=== PATIENT | male | born 1940 | race Caucasian/White ===

== ENCOUNTER 2018-02-10 20:14 | Emergency (ER) | payer OTHER, BC ==
--- NOTE | 2018-02-10 20:56 | PDOC ---
History of Present Illness - General Stated Complaint: SOB Time Seen by Provider: 02/10/18 20:20 History Source: EMS Exam Limitations: Intubated - History of Present Illness Initial Comments: 02/10/18 20:51 77 year old male with PMH HLD, ETOH abuse BIBA intubated from bar. Pt was found down by his friend. EMS stated on presentation he was non-responsive, left sided facial drooping, no protecting his airway, appeared cyanotic, and they intubated him. Pt was given 20 etomidate and 50 rocuronium and 10 mg Versed. Per pt's nephew, pt is an every day drinker, usually 2 beers and 8 vodka drinks , at least 10 years of abuse. Pt's recently and pt's nephew states he has been drinking more since then. Nephew - Ulices Villa - [phone] Past History - Past Medical History Allergies/Adverse Reactions: Allergies Allergy/AdvReac Type Severity Reaction Status Date / Time No Allergy Information Allergy Verified 02/10/18 22:33 Available Home Medications: Ambulatory Orders Unobtainable 02/10/18 Review of Systems - Review of Systems Able to Perform ROS?: No (Pt is intubated) *Physical Exam - Physical Exam Comments: 02/10/18 20:52 Constitutional: Well-nourished, Well-developed, appearing stated age. HEENT: head is normocephalic. pupils pinpoint, but equal, minimally responsive to light. pt is intubated. drooling from mouth. Heart: regular rhythm. no murmurs, rubs or gallops. Lungs: clear to auscultation bilaterally. no crackles, rhonchi or wheezing. no stridor. Abdomen: soft, nontender. distended. normal bowel sounds. Extremities: Peripheral pulses intact. No lower extremity edema. Neurological: CN 2-12 grossly intact. Moves all four extremities. Psych: intubated and sedated. Heart Score/ECG Review - ECG Impressions Comment:: 02/10/18 22:50 EKG performed at 2234 - rate 92, regular rhythm, normal axis, normal intervals, no acute ST changes. ED Treatment Course - LABORATORY CBC & Chemistry Diagram: 02/10/18 20:33 02/10/18 20:33 - ADDITIONAL ORDERS Additional order review: Laboratory Results 02/10/18 20:17 POC Glucometer 135.77347 02/10/18 20:17 POC Glucometer 135.38835 Medical Decision Making - Medical Decision Making 02/10/18 20:54 77 year old male with PMH HLD BIBA from bar to ED after being found down. Was intubated by EMS. EMS reported BP of 200/100. BP on presentation at 2021 - 176/110. - BP control held at this time POC glucose 135. Stat CT performed. Pt was producing saliva and drooling, suctioning used. 02/10/18 21:11 Pt is moving his hands and biting on the intubation tube. - 4mg Versed ordered RN reports repeat BP 190/110 - Labetolol 10 mg ordered 02/10/18 21:25 CT head - acute subdural hematoma. I spoke with Dr. Carbone, neurovascular surgeon, about the case, he advises the pt to be transferred. I spoke with the endovascular surgeon at [facility], Dr. Ernandez, who accepts the transfer. Repeat BP 135/90 Repeat HR 89 02/10/18 22:23 Pt is awake, moving all four extremities. - Versed 4 mg ordered - Versed drip ordered 02/10/18 22:28 CBC WBC 15.5 K/mm3 (4.0-10.0) H 02/10/18 20:33 RBC 4.10 M/mm3 (4.00-5.60) 02/10/18 20:33 Hgb 13.6 GM/dL (11.7-16.9) 02/10/18 20:33 Hct 41.2 % (35.4-49) 02/10/18 20:33 MCV 100.6 fl (80-96) H 02/10/18 20:33 MCH 33.2 pg (25.7-33.7) 02/10/18 20:33 MCHC 33.0 g/dl (32.0-35.9) 02/10/18 20:33 RDW 13.2 % (11.9-15.9) 02/10/18 20:33 Plt Count 135 K/MM3 (134-434) 02/10/18 20:33 MPV 9.0 fl (7.5-11.1) 02/10/18 20:33 Absolute Neuts (auto) 10.9 K/mm3 (1.5-8.0) H 02/10/18 20:33 Neutrophils % 70.4 % (42.8-82.8) 02/10/18 20:33 Lymphocytes % 20.5 % (8-40) 02/10/18 20:33 Monocytes % 8.0 % (3.8-10.2) 02/10/18 20:33 Eosinophils % 0.6 % (0-4.5) 02/10/18 20:33 Basophils % 0.5 % (0-2.0) 02/10/18 20:33 Nucleated RBC % 0 % (0-0) 02/10/18 20:33 Leukocytosis with a left shift. No anemia. Increased MCV - Hx ETOH abuse CMP Sodium 128 mmol/L (136-145) L 02/10/18 20:33 Potassium 3.6 mmol/L (3.5-5.1) 02/10/18 20:33 Chloride 94 mmol/L (98-107) L 02/10/18 20:33 Carbon Dioxide 21 mmol/L (21-32) 02/10/18 20:33 Anion Gap 13 MMOL/L (8-16) 02/10/18 20:33 BUN 7 mg/dL (7-18) 02/10/18 20:33 Creatinine 0.6 mg/dL (0.55-1.3) 02/10/18 20:33 Creat Clearance w eGFR > 60 (>60) 02/10/18 20:33 POC Glucometer 135.20244 UNITS (80-120) 02/10/18 20:17 Random Glucose 84 mg/dL (74-106) 02/10/18 20:33 Lactic Acid 7.4 mmol/L (0.4-2.0) H* 02/10/18 20:33 Calcium 7.9 mg/dL (8.5-10.1) L 02/10/18 20:33 Phosphorus 3.2 mg/dL (2.5-4.9) 02/10/18 20:33 Magnesium 1.4 mg/dL (1.8-2.4) L 02/10/18 20:33 Total Bilirubin 0.7 mg/dL (0.2-1) 02/10/18 20:33 AST 412 U/L (15-37) H 02/10/18 20:33 ALT 137 U/L (13-61) H 02/10/18 20:33 Alkaline Phosphatase 82 U/L (45-117) 02/10/18 20:33 Creatine Kinase 118 IU/L (26-308) 02/10/18 20:33 Troponin I < 0.02 ng/ml (0.00-0.05) 02/10/18 20:33 Total Protein 7.4 g/dl (6.4-8.2) 02/10/18 20:33 Albumin 3.5 g/dl (3.4-5.0) 02/10/18 20:33 Hyponatremia, normal glucose - NS at 717 cc/hour ordered. Hypochloremia. Lactic acidosis. - IVF ordered Hypocalcemia, 8.3 corrected for albumin - 1 g Ca gluconate ordered Hypomagnesium. - 2 g Mg ordered Transaminitis - Hx ETOH abuse 02/10/18 22:58 Urine Test Results Urine Color Ltyellow 02/10/18 21:43 Urine Appearance Slcloudy 02/10/18 21:43 Urine pH 5.0 (5.0-8.0) 02/10/18 21:43 Ur Specific [place] 1.008 (1.010-1.035) L 02/10/18 21:43 Urine Protein 1+ (NEGATIVE) H 02/10/18 21:43 Urine Glucose (UA) Negative (NEGATIVE) 02/10/18 21:43 Urine Ketones Trace (NEGATIVE) H 02/10/18 21:43 Urine Blood 1+ (NEGATIVE) H 02/10/18 21:43 Urine Nitrite Negative (NEGATIVE) 02/10/18 21:43 Urine Bilirubin Negative (<2.0 mg/dL) 02/10/18 21:43 Ur Leukocyte Esterase Negative (NEGATIVE) 02/10/18 21:43 Urine Bacteria Rare /hpf (NONE SEEN) 02/10/18 21:43 UDS positive for benzos - Possibly explains increasing Versed required to sedate ETOH level = 128.7 02/10/18 23:06 - Copies of labwork was given to EMS - Copy of CT report was given to EMS - Copy of pt's nephew's information was provided to EMS Pt will be transferred to [facility]. *DC/Admit/Observation/Transfer Diagnosis at time of Disposition: Subdural hematoma - Discharge Dispostion Disposition: TRANSFER ACUTE CARE/OTHER HOSP Condition at time of disposition: Guarded Decision to Admit order: No - Referrals - Patient Instructions - Post Discharge Activity
--- NOTE | 2018-02-10 21:08 | PDOC ---
Attending Attestation - HPI HPI: 02/10/18 21:11 The patient is a 77 male who presents to the ED via EMS s/p LOC earlier today. As per EMS, patient was found LOC in a Bar. EMS states the patient was altered and unable to move. EMS states the patient smelled of alcohol when found. Patient had a BP on 200/100 en route, is hypertensive, was given 5 versed, and was intubated. HPI is limited secondary to patients clinical condition. <David Cook - Last Filed: 02/10/18 21:11> - Resident Resident Name: Katheryn Mendiola - ED Attending Attestation I have performed the following: I have examined & evaluated the patient, The case was reviewed & discussed with the resident, I agree w/resident's findings & plan, Exceptions are as noted - Physicial Exam PE: 02/10/18 21:05 intubated, unresponsive. course breath sounds bilaterally. heart rrr no mrg. abd distended, nontender. ext cool, 2 + dp / pt pulses. pupils 2 mm bilaterally. nuero, intubated, sedated paralyzed. - Medical Decision Making 02/10/18 21:06 77 yo male collapsed. at bar. here with ams. per ems, pt was at bar, drinking found unresponsive on floor. intubated in field. felt to have had a left facial droop however not moving any extremities. on exam pt intubated, sedated, not following commands. pupils equally round and reactive. differential ich, traumatic, vs. atraumatic. cva, tox, intox etoh, other substance. aaa, . plan cxr ventilation ct head., cxr labs tox scrren. 02/10/18 21:29 pt with subdural, likley traumatic. right sided. after sedation pt moving both bilat upper ext. given 4 mg versed. d/w [facility], who accepted pt as transfer. 02/10/18 21:38 pt will be transferred to [place], accepted by [facility]. 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 states he has been drinking daily lately has had frequent falls. <Karina Bailey - Last Filed: 02/10/18 22:39> Heart Score/ECG Review #1 General ECG Interpretation: Sinus Rhythm, Normal Rate, Normal Intervals, No acute ischemic changes <Karina Bailey - Last Filed: 02/10/18 22:39> Attestations - Attestations 02/10/18 21:11 Documentation prepared by David Cook, acting as medical observer for Karina Bailey MD <David Cook - Last Filed: 02/10/18 21:11>
[2018-02-10] MEDS ORDERED: MIDAZOLAM HCL 2 MG/2 ML SINGLE DOSE VIAL IVPUSH ONE ×2 (21:11→22:19)
[2018-02-10] MEDS ORDERED: LABETALOL HCL 5 MG/1 ML (100MG/20 ML VIAL) IVPUSH ONE (21:11)
[2018-02-10 21:19] LABS: BASO % 0.5 % (0-2.0); EOS % 0.6 % (0-4.5); HEMATOCRIT 41.2 % (35.4-49); HEMOGLOBIN 13.6 GM/dL (11.7-16.9); LYMPH % 20.5 % (8-40); MCH 33.2 pg (25.7-33.7); MEAN CELL VOLUME 100.6 fl (80-96); NEUT % 70.4 % (42.8-82.8); PLATELET COUNT 135 K/MM3 (134-434); RDW 13.2 % (11.9-15.9); WHITE BLOOD COUNT 15.5 K/mm3 (4.0-10.0)
[2018-02-10 21:33] LABS: VENOUS PC02 55.9 mmHg (38-52); VENOUS PO2 36.1 mmHg (28-48)
[2018-02-10 21:35] LABS: VENOUS PH 7.2 (7.32-7.42)
[2018-02-10 21:39] LABS: INR 0.94 (0.83-1.09); PROTHROMBIN TIME (PATIENT) 11.1 SEC (9.7-13.0)
[2018-02-10] MEDS ORDERED: SODIUM CHLORIDE 0.9% 1000 ML INFUS.BAG IV ONE (21:39)
[2018-02-10 21:42] LABS: ACTIVATED PTT 27.8 SECONDS (25.2-36.5)
[2018-02-10 22:01] LABS: URINE APPEARANCE SLCLOUDY; URINE BILIRUBIN NEGATIVE (<2.0 mg/dL); URINE COLOR LTYELLOW; URINE GLUCOSE (UA) NEGATIVE (NEGATIVE); URINE KETONE TRACE (NEGATIVE); URINE LEUK ESTERASE NEGATIVE (NEGATIVE); URINE NITRITE NEGATIVE (NEGATIVE); URINE PROTEIN 1+ (NEGATIVE); URINE UROBILINOGEN NEGATIVE mg/dL (0.2-1.0)
[2018-02-10] MEDS ORDERED: levETIRAcetam 500 MG/5 ML INJECTION VIAL IVPB ONE (22:07)
[2018-02-10 22:11] LABS: URINE BACTERIA RARE /hpf (NONE SEEN)
[2018-02-10 22:17] VITALS: TEMP 98.7; BMI 28.1
[2018-02-10 22:24] LABS: ALBUMIN 3.5 g/dl (3.4-5.0); ALK PHOS 82 U/L (45-117); ANION GAP 13 MMOL/L (8-16); BILIRUBIN,TOTAL 0.7 mg/dL (0.2-1); BLOOD UREA NITROGEN 7 mg/dL (7-18); CALCIUM 7.9 mg/dL (8.5-10.1); CHLORIDE 94 mmol/L (98-107); CO2 21 mmol/L (21-32); CREATININE 0.6 mg/dL (0.55-1.3); GLUCOSE,RANDOM 84 mg/dL (74-106); MAGNESIUM 1.4 mg/dL (1.8-2.4); PHOSPHOROUS 3.2 mg/dL (2.5-4.9); POTASSIUM 3.6 mmol/L (3.5-5.1); SGOT/AST 412 U/L (15-37); SGPT/ALT 137 U/L (13-61); SODIUM 128 mmol/L (136-145); TOT PROT 7.4 g/dl (6.4-8.2)
[2018-02-10] MEDS ORDERED: SODIUM CHLORIDE 1,000 ML IV SCH (22:45)
[2018-02-10 22:49] LABS: COCAINE, UR NEGATIVE ng/ml (CUTOFF=300); METHADONE, UR NEGATIVE ng/ml (CUTOFF=300); OPIATES, URI NEGATIVE ng/ml (CUTOFF=300); PHENCYCLIDINE,URINE NEGATIVE ng/ml (CUTOFF=25); URINE AMPHETAMINES NEGATIVE ng/ml (CUTOFF=500); URINE BARBITURATES NEGATIVE ng/ml (CUTOFF=200)
[2018-02-10] MEDS ORDERED: MAGNESIUM SULF 50% (8.12 MEQ/2 ML-1 GM VIAL) IVPB ONE (22:50)
[2018-02-10] MEDS ORDERED: CALCIUM GLUCONATE 10% - 1,000 MG/10 ML VIAL IVPB ONE (22:51)
[2018-02-10 22:56] LABS: URINE BENZODIAZEPINES POSITIVE ng/ml (CUTOFF=200)
[2018-02-10] MEDS ORDERED: CALCIUM GLUCONATE 10% - 1,000 MG/10 ML VIAL ONE (22:57)
[2018-02-10] MEDS ORDERED: MAGNESIUM 1GM/D5W - 2 GM/200 ML IVPB IVPB ONE (22:57)
[2018-02-10] MEDS ORDERED: MIDAZOLAM 100 MG in SODIUM CHLORIDE 100 ML IVPB SCH (23:00)
[2018-02-10 23:30] VITALS: BP 137/81; PULSE 96
--- NOTE | 2018-02-12 18:06 | EKG ---
Test Reason : Blood Pressure : / mmHG Vent. Rate : 092 BPM Atrial Rate : 092 BPM P-R Int : 174 ms QRS Dur : 086 ms QT Int : 398 ms P-R-T Axes : 049 076 078 degrees QTc Int : 492 ms NORMAL SINUS RHYTHM PROLONGED QT ABNORMAL ECG NO PREVIOUS ECGS AVAILABLE Confirmed by JORGE VILLARREAL MD ([id number]) on 02/12/2018 6:05:24 PM Referred By: Confirmed By:JORGE VILLARREAL MD
== END 2018-02-10 23:57 | disposition short-term general hospital (02) ==
LOC: JER 20:14
PROC: 3E033GC Introduction of Other Therapeutic Substance into Peripheral Vein, Percutaneous Approach (ICD-10-PCS; principal; 2018-02-10)
PROC: 3E033NZ Introduction of Analgesics, Hypnotics, Sedatives into Peripheral Vein, Percutaneous Approach (ICD-10-PCS; 2018-02-10)
PROC: 3E033NZ Introduction of Analgesics, Hypnotics, Sedatives into Peripheral Vein, Percutaneous Approach (ICD-10-PCS; 2018-02-10)
PROC: 3E033GC Introduction of Other Therapeutic Substance into Peripheral Vein, Percutaneous Approach (ICD-10-PCS; 2018-02-10)
PROC: 3E033GC Introduction of Other Therapeutic Substance into Peripheral Vein, Percutaneous Approach (ICD-10-PCS; 2018-02-10)
PROC: 3E0337Z Introduction of Electrolytic and Water Balance Substance into Peripheral Vein, Percutaneous Approach (ICD-10-PCS; 2018-02-10)
DX: S06.5X9A Traumatic subdural hemorrhage with loss of consciousness of unspecified duration, initial encounter (principal); F10.10 Alcohol abuse, uncomplicated; W18.39XA Other fall on same level, initial encounter; Y93.89 Activity, other specified; Y92.59 Other trade areas as the place of occurrence of the external cause; Y99.8 Other external cause status; I10 Essential (primary) hypertension; E87.1 Hypo-osmolality and hyponatremia; E87.8 Other disorders of electrolyte and fluid balance, not elsewhere classified; E83.51 Hypocalcemia; E83.42 Hypomagnesemia; R74.0 Nonspecific elevation of levels of transaminase and lactic acid dehydrogenase [LDH]; E87.2 Acidosis; Y90.6 Blood alcohol level of 120-199 mg/100 ml
CPT/HCPCS: 36415; 70450-TC; 71045-TC-FY; 80053; 80307; 81003; 81015; 82550; 82803; 82962; 83605; 83735; 84100; 84484; 85025; 85610; 85730; 93005; 93010; 99284-25; J7030